=== PATIENT | male | born 1955 | race African-American/Black ===

== ENCOUNTER 2019-08-18 12:07 | Inpatient (IN) | payer OTHER ==
[2019-08-18 12:47] VITALS: BMI 30.4
--- NOTE | 2019-08-18 18:08 | HP ---
CIWA Score - Admission Criteria OASAS Guidelines: Admission for Medically Managed Detox: Requires at least one of the followin. CIWA greater than 12 2. Seizures within the past 24 hours 3. Delirium tremens within the past 24 hours 4. Hallucinations within the past 24 hours 5. Acute intervention needed for co occurring medical disorder 6. Acute intervention needed for co occurring psychiatric disorder 7. Severe withdrawal that cannot be handled at a lower level of care (continued vomiting, continued diarrhea, abnormal vital signs) requiring intravenous medication and/or fluids 8. Admitting History and Physical - Admission History Source: Patient Limitations to Obtaining History: Physical Impairment (Uses cane ambulate.) - Past Surgical History Past Surgical History: Yes: Appendectomy - Smoking History Smoking history: Former smoker Have you smoked in the past 12 months: No - Alcohol/Substance Use Hx Alcohol Use: Yes Number of Drinks Daily: 6 History of Substance Use: reports: Cocaine Date of Last Use: 08/10/19 - Social History Usual Living Arrangement: Yes: Other (With sister and friends) Admission [facility] Chief Complaint: Seeking rehab services. Allergies/Adverse Reactions: Allergies Allergy/AdvReac Type Severity Reaction Status Date / Time No Known Allergies Allergy Verified 08/18/19 12:25 History of Present Illness: 63 y.o. man with an extensive history of alcohol and crack-cocaine dependence is here seeking rehab services. He reports completed detox at [facility] today (08/18/19). He reports his longest period of sobriety has been 5 years while incarcerated. Exam Limitations: Physical Impairment (Uses a cane when ambulating.) - Ebola screening Have you traveled outside of the country in the last 21 days: No Have you had contact with anyone from an Ebola affected area: No Do you have a fever: No - Review of Systems Constitutional: Unexplained wgt Loss EENT: reports: Nose Congestion Respiratory: reports: Cough Cardiac: reports: No Symptoms Reported GI: reports: No Symptoms Reported : reports: No Symptoms Reported Musculoskeletal: reports: Gout, Joint Pain, Muscle Pain Integumentary: reports: No Symptoms Reported Neuro: reports: Seizure ("A few years ago"; ETOH induced.) Endocrine: reports: No Symptoms Reported Hematology: reports: No Symptoms Reported Psychiatric: reports: Orientated x3, Depressed Other Systems: Reviewed and Negative Patient History - Patient Medical History Hx Anemia: Yes (JEFRY ) Hx Asthma: No Hx Chronic Obstructive Pulmonary Disease (COPD): No Hx Cancer: No Hx Cardiac Disorders: Yes Hx Congestive Heart Failure: No Hx Hypertension: Yes Hx Hypercholesterolemia: No Hx Pacemaker: No HX Cerebrovascular Accident: No Hx Seizures: Yes (ETOH induced in 2017) Hx Dementia: No Hx Diabetes: No Hx Gastrointestinal Disorders: No Hx Liver Disease: No Hx Genitourinary Disorders: No Hx Sexually Transmitted Disorders: No Hx Renal Disease (ESRD): No Hx Thyroid Disease: No Hx Human Immunodeficiency Virus (HIV): No Hx Hepatitis C: No Hx Depression: Yes Hx Suicide Attempt: No Hx Bipolar Disorder: No Hx Schizophrenia: No - Patient Surgical History Hx Appendectomy: Yes Other Surgical History: Right ring finger amputation - PPD History Previous Implant?: Yes Documented Results: Negative w/o proof - Reproductive History Patient is a Female of Child Bearing Age (11 -55 yrs old): No - Smoking Cessation Smoking history: Former smoker Have you smoked in the past 12 months: No Initiated information on smoking cessation: No - Substance & Tx. History Hx Alcohol Use: Yes Hx Substance Use: Yes Substance Use Type: Alcohol, Cocaine Hx Substance Use Treatment: Yes (Completed detox today at [facility] ) - Substances abused Alcohol Substance route: Oral Frequency: Daily Amount used: 6 CANS OF 160Z BEERS Age of first use: 17 Date of last use: 08/13/19 Crack Substance route: Inhalation Frequency: 1-3 times last 30 days Amount used: $20 Date of last use: 07/19/19 Admission Physical Exam BHS - Vital Signs Vital Signs: Vital Signs - 24 hr 08/18/19 08/18/19 12:22 17:41 Temperature 97.8 F 97.8 F Pulse Rate 90 90 Respiratory 18 18 Rate Blood Pressure 120/85 120/85 - Physical General Appearance: Yes: No Apparent Distress, Nourished, Appropriately Dressed HEENTM: Yes: Hearing grossly Normal, Normocephalic, Normal Voice Respiratory: Yes: Chest Non-Tender, Lungs Clear, Normal Breath Sounds, No Respiratory Distress, No Accessory Muscle Use Neck: Yes: Within Normal Limits Breast: Yes: Breast Exam Deferred Cardiology: Yes: Regular Rhythm, Regular Rate Abdominal: Yes: Normal Bowel Sounds, Non Tender Genitourinary: Yes: Within Normal Limits Back: Yes: Normal Inspection Musculoskeletal: Yes: Back pain, Joint Stiffness, Muscle Pain, Muscle weakness Extremities: Yes: Normal Inspection, Other (Right ring finger amputation) Neurological: Yes: Alert, Normal Mood/Affect, Normal Response Integumentary: Yes: Normal Color, Warm Lymphatic: Yes: Within Normal Limits - Diagnostic (1) Alcohol dependence with intoxication, uncomplicated Current Visit: Yes Status: Chronic (2) Gout Current Visit: Yes Status: Chronic (3) Hypertension Current Visit: Yes Status: Chronic (4) History of seizure Current Visit: Yes Status: Chronic (5) Osteoarthritis Current Visit: Yes Status: Chronic (6) Use of cane as ambulatory aid Current Visit: Yes Status: Chronic (7) Cocaine dependence, uncomplicated Current Visit: Yes Status: Chronic (8) Chronic pain Current Visit: Yes Status: Chronic Cleared for Admission [facility] - Detox or Rehab [facility] Level of Care: Observation Bed Detox Regimen/Protocol: Not Applicable Claeared for Rehab Admission: Yes Breathalyzer - Breathalyzer Breathalyzer: 0 Urine Drug Screen - Test Device Lot number: [id number] Expiration date: 03/25/21 - Control Is test valid?: Yes - Results Drug screen NEGATIVE: No Urine drug screen results: BZO-Benzodiazepines Inpatient Rehab Admission - Rehab Decision to Admit Inpatient rehab admission?: Yes - Initial Determination Are CD services needed?: Yes Free of communicable disease: Yes Not in need of hospitalization: Yes - Rehab Admission Criteria Previous failed treatment: Yes Poor recovery environment: Yes Comorbidities: Yes Lacks judgement: Yes Patient is meeting Inpatient Rehab admission criteria:: Yes
[2019-08-18] MEDS ORDERED: MAG HYDROX/AL HYDROX/SIMETH 30 ML UNIT-DOSE CUP PO PRN (18:16)
[2019-08-18] MEDS ORDERED: MAGNESIUM HYDROX 2400MG/30ML ORAL SUSPENSION 30 ML CUP PO PRN (18:16)
[2019-08-18] MEDS ORDERED: MAGNESIUM CITRATE 300 ML BOTTLE PO PRN (18:16)
[2019-08-18] MEDS ORDERED: hydrOXYzine PAMOATE 50 MG CAPSULE (FP) PO PRN (18:16)
[2019-08-18] MEDS ORDERED: MENTHOL/PHENOL 1 EACH UD MM PRN (18:16)
[2019-08-18] MEDS ORDERED: P-EPHED 60MG/TRIPROLIDI 2.5MG TABLET PO PRN (18:16)
[2019-08-18] MEDS ORDERED: LOPERAMIDE HCL 2 MG CAPSULE PO PRN (18:16)
[2019-08-18] MEDS: THIAMINE HCL 100 MG TABLET (FP) PO SCH (21:06)
[2019-08-18] MEDS: GABAPENTIN 100 MG CAPSULE (FP) PO SCH (21:06)
[2019-08-19] MEDS: GABAPENTIN 100 MG CAPSULE (FP) PO SCH ×3 (06:34→21:01)
[2019-08-19] MEDS: PRENATAL VITAMINS W/ FOLIC ACID TABLET (FP) PO SCH (09:18)
[2019-08-19] MEDS: ASPIRIN COATED 81 MG TABLET.EC PO SCH (09:18)
[2019-08-19] MEDS: COLCHICINE 0.6 MG CAP PO SCH (09:18)
[2019-08-19] MEDS: LISINOPRIL 20 MG TABLET (FP) PO SCH (09:19)
--- NOTE | 2019-08-19 10:01 | PN ---
S Progress Note Note: Vital Signs Period Temp Pulse Resp BP Sys/Scruggs Pulse Ox Last 24 Hr 97.2 F-97.8 F 68-95 18-18 120-160/74-99 First admission to [facility] for this patient; admitted to [address] [place] [address]. problem list reviewed, home medications reviewed, orders reviewed. Continue rehabilitation and maintain safety.
[2019-08-19 10:43] LABS: HEMATOCRIT 43.9 % (35.4-49); HEMOGLOBIN 14.5 GM/dL (11.7-16.9); MCH 32.6 pg (25.7-33.7); MCHC 33.1 g/dl (32.0-35.9); MEAN CELL VOLUME 98.6 fl (80-96); MEAN PLT VOLUME 9.9 fl (7.5-11.1); PLATELET COUNT 184 K/MM3 (134-434); RBC 4.45 M/mm3 (4.00-5.60); RDW 13.1 % (11.9-15.9)
[2019-08-19 10:53] LABS: ALBUMIN 4.2 g/dl (3.4-5.0); BILIRUBIN,TOTAL 0.5 mg/dL (0.2-1); BLOOD UREA NITROGEN 18.5 mg/dL (7-18); CALCIUM 9.2 mg/dL (8.5-10.1); POTASSIUM 3.9 mmol/L (3.5-5.1); TOT PROT 7.7 g/dl (6.4-8.2)
[2019-08-19] MEDS: THIAMINE HCL 100 MG TABLET (FP) PO SCH (21:01)
[2019-08-19] MEDS: IBUPROFEN 400 MG TABLET (FP) PO PRN (21:02)
--- NOTE | 2019-08-20 05:13 | EKG ---
Test Reason : Blood Pressure : / mmHG Vent. Rate : 099 BPM Atrial Rate : 099 BPM P-R Int : 184 ms QRS Dur : 088 ms QT Int : 354 ms P-R-T Axes : 046 022 030 degrees QTc Int : 454 ms NORMAL SINUS RHYTHM NONSPECIFIC T WAVE ABNORMALITY ABNORMAL ECG NO PREVIOUS ECGS AVAILABLE Confirmed by BROOKE DUMONT, JOSE ([id number]) on 08/20/2019 5:13:02 AM Referred By: TC Confirmed By:JOSE COX MD
[2019-08-20] MEDS: GABAPENTIN 100 MG CAPSULE (FP) PO SCH ×3 (07:07→21:00)
[2019-08-20] MEDS: COLCHICINE 0.6 MG CAP PO SCH (09:59)
[2019-08-20] MEDS: ASPIRIN COATED 81 MG TABLET.EC PO SCH (10:00)
[2019-08-20] MEDS: PRENATAL VITAMINS W/ FOLIC ACID TABLET (FP) PO SCH (10:00)
[2019-08-20] MEDS: LISINOPRIL 20 MG TABLET (FP) PO SCH (10:00)
[2019-08-20] MEDS: IBUPROFEN 400 MG TABLET (FP) PO PRN (10:02)
[2019-08-20 16:02] LABS: URINE APPEARANCE CLEAR; URINE BILIRUBIN NEGATIVE (NEGATIVE); URINE COLOR YELLOW; URINE GLUCOSE (UA) NEGATIVE (NEGATIVE); URINE KETONE NEGATIVE (NEGATIVE); URINE LEUK ESTERASE NEGATIVE (NEGATIVE); URINE NITRITE NEGATIVE (NEGATIVE); URINE PROTEIN NEGATIVE (NEGATIVE); URINE UROBILINOGEN 0.2 mg/dL (0.2-1.0)
[2019-08-20] MEDS: THIAMINE HCL 100 MG TABLET (FP) PO SCH (21:01)
[2019-08-21] MEDS: GABAPENTIN 100 MG CAPSULE (FP) PO SCH ×3 (06:33→21:07)
[2019-08-21] MEDS: PRENATAL VITAMINS W/ FOLIC ACID TABLET (FP) PO SCH (10:00)
[2019-08-21] MEDS: ASPIRIN COATED 81 MG TABLET.EC PO SCH (10:00)
[2019-08-21] MEDS: COLCHICINE 0.6 MG CAP PO SCH (10:01)
[2019-08-21] MEDS: LISINOPRIL 20 MG TABLET (FP) PO SCH (10:01)
[2019-08-21] MEDS: IBUPROFEN 400 MG TABLET (FP) PO PRN ×2 (10:03→21:07)
[2019-08-21] MEDS: ACETAMINOPHEN 325 MG TABLET (FP) PO PRN (14:58)
[2019-08-21] MEDS: THIAMINE HCL 100 MG TABLET (FP) PO SCH (21:07)
[2019-08-21] MEDS: guaiFENesin 200 MG/10 ML 10 ML UNIT-DOSE CUPS PO PRN (23:45)
[2019-08-22] MEDS: GABAPENTIN 100 MG CAPSULE (FP) PO SCH ×3 (06:32→21:02)
[2019-08-22] MEDS: LISINOPRIL 20 MG TABLET (FP) PO SCH ×2 (07:30→09:56)
[2019-08-22] MEDS: COLCHICINE 0.6 MG CAP PO SCH (09:54)
[2019-08-22] MEDS: PRENATAL VITAMINS W/ FOLIC ACID TABLET (FP) PO SCH (09:54)
[2019-08-22] MEDS: ASPIRIN COATED 81 MG TABLET.EC PO SCH (09:54)
[2019-08-22] MEDS: IBUPROFEN 400 MG TABLET (FP) PO PRN (14:34)
[2019-08-22] MEDS: THIAMINE HCL 100 MG TABLET (FP) PO SCH (21:02)
[2019-08-22] MEDS: MELATONIN 5 MG TABLETS PO PRN (21:02)
[2019-08-22] MEDS: NAPROXEN 375 MG TABLET (FP) PO SCH (23:10)
[2019-08-23] MEDS: GABAPENTIN 100 MG CAPSULE (FP) PO SCH ×3 (06:52→21:04)
[2019-08-23] MEDS: LISINOPRIL 20 MG TABLET (FP) PO SCH (09:38)
[2019-08-23] MEDS: ASPIRIN COATED 81 MG TABLET.EC PO SCH (09:38)
[2019-08-23] MEDS: COLCHICINE 0.6 MG CAP PO SCH (09:38)
[2019-08-23] MEDS: PRENATAL VITAMINS W/ FOLIC ACID TABLET (FP) PO SCH (09:38)
[2019-08-23] MEDS: NAPROXEN 375 MG TABLET (FP) PO SCH ×2 (09:38→21:04)
[2019-08-23] MEDS: THIAMINE HCL 100 MG TABLET (FP) PO SCH (21:04)
[2019-08-24] MEDS: GABAPENTIN 100 MG CAPSULE (FP) PO SCH ×3 (06:38→21:02)
[2019-08-24] MEDS: NAPROXEN 375 MG TABLET (FP) PO SCH ×2 (09:56→21:01)
[2019-08-24] MEDS: PRENATAL VITAMINS W/ FOLIC ACID TABLET (FP) PO SCH (09:56)
[2019-08-24] MEDS: COLCHICINE 0.6 MG CAP PO SCH (09:57)
[2019-08-24] MEDS: ASPIRIN COATED 81 MG TABLET.EC PO SCH (09:57)
[2019-08-24] MEDS: LISINOPRIL 20 MG TABLET (FP) PO SCH (09:57)
[2019-08-24] MEDS: guaiFENesin 200 MG/10 ML 10 ML UNIT-DOSE CUPS PO PRN (09:58)
[2019-08-24] MEDS: THIAMINE HCL 100 MG TABLET (FP) PO SCH (21:02)
[2019-08-24] MEDS: MELATONIN 5 MG TABLETS PO PRN (21:02)
[2019-08-25] MEDS: GABAPENTIN 100 MG CAPSULE (FP) PO SCH ×3 (06:20→21:03)
[2019-08-25] MEDS: guaiFENesin 200 MG/10 ML 10 ML UNIT-DOSE CUPS PO PRN (06:21)
[2019-08-25] MEDS: NAPROXEN 375 MG TABLET (FP) PO SCH ×2 (10:05→21:03)
[2019-08-25] MEDS: ASPIRIN COATED 81 MG TABLET.EC PO SCH (10:06)
[2019-08-25] MEDS: COLCHICINE 0.6 MG CAP PO SCH (10:07)
[2019-08-25] MEDS: PRENATAL VITAMINS W/ FOLIC ACID TABLET (FP) PO SCH (10:07)
[2019-08-25] MEDS: LISINOPRIL 20 MG TABLET (FP) PO SCH (10:07)
[2019-08-25] MEDS: THIAMINE HCL 100 MG TABLET (FP) PO SCH (21:03)
[2019-08-26] MEDS: GABAPENTIN 100 MG CAPSULE (FP) PO SCH ×3 (06:37→21:03)
[2019-08-26] MEDS: NAPROXEN 375 MG TABLET (FP) PO SCH ×2 (09:42→21:02)
[2019-08-26] MEDS: LISINOPRIL 20 MG TABLET (FP) PO SCH (09:42)
[2019-08-26] MEDS: PRENATAL VITAMINS W/ FOLIC ACID TABLET (FP) PO SCH (09:42)
[2019-08-26] MEDS: COLCHICINE 0.6 MG CAP PO SCH (09:42)
[2019-08-26] MEDS: ASPIRIN COATED 81 MG TABLET.EC PO SCH (09:42)
--- NOTE | 2019-08-26 09:57 | PN ---
[facility] Progress Note Note: Pt c/o chronic left hip pain and reports he was told "it's bone to bone". Pt reports Hx of right hip surgery. Vital Signs - 24 hr 08/26/19 08/26/19 08/26/19 00:59 03:30 06:54 Temperature 97.0 F L Pulse Rate 84 Respiratory 16 18 18 Rate Blood Pressure 156/102 H 08/26/19 08/26/19 07:47 09:08 Temperature Pulse Rate 92 H Respiratory Rate Blood Pressure 133/71 139/89 Laboratory Tests 08/19/19 08/19/19 08/19/19 09:20 09:20 09:20 WBC 8.0 RBC 4.45 Hgb 14.5 Hct 43.9 MCV 98.6 H MCH 32.6 MCHC 33.1 RDW 13.1 Plt Count 184 MPV 9.9 Sodium 142 Potassium 3.9 Chloride 108 H Carbon Dioxide 27 Anion Gap 7 L BUN 18.5 H Creatinine 1.0 Est GFR (CKD-EPI)AfAm 93.08 Est GFR (CKD-EPI)NonAf 80.31 Random Glucose 101 Calcium 9.2 Total Bilirubin 0.5 AST 30 ALT 42 Alkaline Phosphatase 94 Total Protein 7.7 Albumin 4.2 Urine Color Urine Appearance Urine pH Ur Specific [place] Urine Protein Urine Glucose (UA) Urine Ketones Urine Blood Urine Nitrite Urine Bilirubin Urine Urobilinogen Ur Leukocyte Esterase RPR Titer Nonreactive 08/20/19 13:40 WBC RBC Hgb Hct MCV MCH MCHC RDW Plt Count MPV Sodium Potassium Chloride Carbon Dioxide Anion Gap BUN Creatinine Est GFR (CKD-EPI)AfAm Est GFR (CKD-EPI)NonAf Random Glucose Calcium Total Bilirubin AST ALT Alkaline Phosphatase Total Protein Albumin Urine Color Yellow Urine Appearance Clear Urine pH 7.0 Ur Specific [place] 1.019 Urine Protein Negative Urine Glucose (UA) Negative Urine Ketones Negative Urine Blood Negative Urine Nitrite Negative Urine Bilirubin Negative Urine Urobilinogen 0.2 Ur Leukocyte Esterase Negative RPR Titer Alert o x 3 nad oob ambulating with cane A/P chronic Hip pain Hx Gout Add Lidocaine patch 5% daily as directed. Maintain safety
[2019-08-26] MEDS: LIDOCAINE 5% TOPICAL PATCH TP SCH (10:37)
[2019-08-26] MEDS: guaiFENesin 200 MG/10 ML 10 ML UNIT-DOSE CUPS PO PRN ×2 (14:14→21:04)
[2019-08-26] MEDS: LIDOCAINE PATCH REMOVAL MC SCH (21:02)
[2019-08-26] MEDS: THIAMINE HCL 100 MG TABLET (FP) PO SCH (21:03)
[2019-08-26] MEDS: MELATONIN 5 MG TABLETS PO PRN (21:03)
[2019-08-27] MEDS: GABAPENTIN 100 MG CAPSULE (FP) PO SCH ×3 (05:55→21:04)
[2019-08-27] MEDS: NAPROXEN 375 MG TABLET (FP) PO SCH ×2 (10:19→21:04)
[2019-08-27] MEDS: COLCHICINE 0.6 MG CAP PO SCH (10:20)
[2019-08-27] MEDS: ASPIRIN COATED 81 MG TABLET.EC PO SCH (10:20)
[2019-08-27] MEDS: PRENATAL VITAMINS W/ FOLIC ACID TABLET (FP) PO SCH (10:20)
[2019-08-27] MEDS: LIDOCAINE 5% TOPICAL PATCH TP SCH (10:21)
[2019-08-27] MEDS: LISINOPRIL 20 MG TABLET (FP) PO SCH (10:23)
[2019-08-27] MEDS: THIAMINE HCL 100 MG TABLET (FP) PO SCH (21:04)
[2019-08-27] MEDS: LIDOCAINE PATCH REMOVAL MC SCH (21:05)
[2019-08-28] MEDS: GABAPENTIN 100 MG CAPSULE (FP) PO SCH ×3 (06:16→21:03)
[2019-08-28] MEDS: NAPROXEN 375 MG TABLET (FP) PO SCH ×2 (09:32→21:03)
[2019-08-28] MEDS: ASPIRIN COATED 81 MG TABLET.EC PO SCH (09:32)
[2019-08-28] MEDS: PRENATAL VITAMINS W/ FOLIC ACID TABLET (FP) PO SCH (09:33)
[2019-08-28] MEDS: LISINOPRIL 20 MG TABLET (FP) PO SCH (09:33)
[2019-08-28] MEDS: COLCHICINE 0.6 MG CAP PO SCH (09:33)
[2019-08-28] MEDS: LIDOCAINE 5% TOPICAL PATCH TP SCH (09:33)
[2019-08-28] MEDS: THIAMINE HCL 100 MG TABLET (FP) PO SCH (21:03)
[2019-08-28] MEDS: LIDOCAINE PATCH REMOVAL MC SCH (21:05)
[2019-08-29] MEDS: GABAPENTIN 100 MG CAPSULE (FP) PO SCH ×3 (06:06→21:45)
[2019-08-29] MEDS: PRENATAL VITAMINS W/ FOLIC ACID TABLET (FP) PO SCH (10:53)
[2019-08-29] MEDS: ASPIRIN COATED 81 MG TABLET.EC PO SCH (10:53)
[2019-08-29] MEDS: LIDOCAINE 5% TOPICAL PATCH TP SCH (10:54)
[2019-08-29] MEDS: COLCHICINE 0.6 MG CAP PO SCH (10:55)
[2019-08-29] MEDS: NAPROXEN 375 MG TABLET (FP) PO SCH ×2 (10:55→21:44)
[2019-08-29] MEDS: LISINOPRIL 20 MG TABLET (FP) PO SCH (11:22)
[2019-08-29] MEDS: LIDOCAINE PATCH REMOVAL MC SCH (21:44)
[2019-08-29] MEDS: THIAMINE HCL 100 MG TABLET (FP) PO SCH (21:45)
[2019-08-29] MEDS: guaiFENesin 200 MG/10 ML 10 ML UNIT-DOSE CUPS PO PRN (21:46)
[2019-08-30] MEDS: GABAPENTIN 100 MG CAPSULE (FP) PO SCH ×3 (06:41→21:37)
[2019-08-30] MEDS: COLCHICINE 0.6 MG CAP PO SCH (10:28)
[2019-08-30] MEDS: NAPROXEN 375 MG TABLET (FP) PO SCH ×2 (10:28→22:40)
[2019-08-30] MEDS: PRENATAL VITAMINS W/ FOLIC ACID TABLET (FP) PO SCH (10:29)
[2019-08-30] MEDS: LISINOPRIL 20 MG TABLET (FP) PO SCH (10:29)
[2019-08-30] MEDS: LIDOCAINE 5% TOPICAL PATCH TP SCH (10:29)
[2019-08-30] MEDS: ASPIRIN COATED 81 MG TABLET.EC PO SCH (10:29)
[2019-08-30] MEDS: guaiFENesin 200 MG/10 ML 10 ML UNIT-DOSE CUPS PO PRN (10:31)
[2019-08-30] MEDS: THIAMINE HCL 100 MG TABLET (FP) PO SCH (21:37)
[2019-08-30] MEDS: MELATONIN 5 MG TABLETS PO PRN (21:37)
[2019-08-30] MEDS: LIDOCAINE PATCH REMOVAL MC SCH (21:38)
[2019-08-31] MEDS: GABAPENTIN 100 MG CAPSULE (FP) PO SCH ×3 (06:13→22:11)
[2019-08-31] MEDS: PRENATAL VITAMINS W/ FOLIC ACID TABLET (FP) PO SCH (09:31)
[2019-08-31] MEDS: LIDOCAINE 5% TOPICAL PATCH TP SCH (09:31)
[2019-08-31] MEDS: ASPIRIN COATED 81 MG TABLET.EC PO SCH (09:31)
[2019-08-31] MEDS: LISINOPRIL 20 MG TABLET (FP) PO SCH (09:31)
[2019-08-31] MEDS: NAPROXEN 375 MG TABLET (FP) PO SCH ×2 (09:32→22:11)
[2019-08-31] MEDS: COLCHICINE 0.6 MG CAP PO SCH (09:32)
[2019-08-31] MEDS: THIAMINE HCL 100 MG TABLET (FP) PO SCH (22:11)
[2019-08-31] MEDS: LIDOCAINE PATCH REMOVAL MC SCH (22:12)
[2019-09-01] MEDS: GABAPENTIN 100 MG CAPSULE (FP) PO SCH ×3 (06:12→21:59)
[2019-09-01] MEDS: NAPROXEN 375 MG TABLET (FP) PO SCH ×2 (10:31→21:59)
[2019-09-01] MEDS: LISINOPRIL 20 MG TABLET (FP) PO SCH (10:31)
[2019-09-01] MEDS: COLCHICINE 0.6 MG CAP PO SCH (10:31)
[2019-09-01] MEDS: PRENATAL VITAMINS W/ FOLIC ACID TABLET (FP) PO SCH (10:31)
[2019-09-01] MEDS: ASPIRIN COATED 81 MG TABLET.EC PO SCH (10:31)
[2019-09-01] MEDS: LIDOCAINE 5% TOPICAL PATCH TP SCH (10:32)
[2019-09-01] MEDS: THIAMINE HCL 100 MG TABLET (FP) PO SCH (21:59)
[2019-09-01] MEDS: LIDOCAINE PATCH REMOVAL MC SCH (22:00)
[2019-09-02] MEDS: GABAPENTIN 100 MG CAPSULE (FP) PO SCH ×3 (06:03→22:08)
[2019-09-02] MEDS: PRENATAL VITAMINS W/ FOLIC ACID TABLET (FP) PO SCH (10:59)
[2019-09-02] MEDS: LISINOPRIL 20 MG TABLET (FP) PO SCH (10:59)
[2019-09-02] MEDS: NAPROXEN 375 MG TABLET (FP) PO SCH ×2 (10:59→22:08)
[2019-09-02] MEDS: LIDOCAINE 5% TOPICAL PATCH TP SCH (11:00)
[2019-09-02] MEDS: ASPIRIN COATED 81 MG TABLET.EC PO SCH (11:00)
[2019-09-02] MEDS: COLCHICINE 0.6 MG CAP PO SCH (11:00)
[2019-09-02] MEDS: THIAMINE HCL 100 MG TABLET (FP) PO SCH (22:08)
[2019-09-02] MEDS: LIDOCAINE PATCH REMOVAL MC SCH (22:09)
[2019-09-03] MEDS: GABAPENTIN 100 MG CAPSULE (FP) PO SCH ×3 (06:02→21:57)
[2019-09-03] MEDS: NAPROXEN 375 MG TABLET (FP) PO SCH ×2 (10:55→21:56)
[2019-09-03] MEDS: PRENATAL VITAMINS W/ FOLIC ACID TABLET (FP) PO SCH (10:55)
[2019-09-03] MEDS: LISINOPRIL 20 MG TABLET (FP) PO SCH (10:55)
[2019-09-03] MEDS: ASPIRIN COATED 81 MG TABLET.EC PO SCH (10:56)
[2019-09-03] MEDS: LIDOCAINE 5% TOPICAL PATCH TP SCH (10:56)
[2019-09-03] MEDS: COLCHICINE 0.6 MG CAP PO SCH (10:56)
--- NOTE | 2019-09-03 11:11 | PN ---
S Progress Note Note: Pt c/o pain and skin breaks to both toes due to ill-fitting shoes. Reports slight pain to the areas 3/10 on left and 1-2/10 on right. Vital Signs - 24 hr 09/03/19 09/03/19 09/03/19 00:30 03:30 07:07 Temperature 97.3 F L Pulse Rate 78 Respiratory 18 18 18 Rate Blood Pressure 144/90 LE Exam:bunion on great toes, breanna. right great toe with old darkened abrasion, dry. left great toe with old ulcer wound, slightly moist,no pus or drainage. toe joints deformity. slight non-pitting edema to both lower extremities. A/P hx Gout hx Bunions ulcer/abrasion relate to ill-fitting shoes Clean ulcer with saline solution Bacitracin ointment apply as directed LEYDI stockings as directed elevate both legs while in bed d/w pt to use well fitted shoes
[2019-09-03] MEDS: BACITRACIN 15 GM TUBE TOPICAL OINTMENT TP SCH ×2 (12:00→21:57)
[2019-09-03] MEDS: LIDOCAINE PATCH REMOVAL MC SCH (21:57)
[2019-09-03] MEDS: THIAMINE HCL 100 MG TABLET (FP) PO SCH (21:57)
[2019-09-04] MEDS: GABAPENTIN 100 MG CAPSULE (FP) PO SCH ×3 (06:09→22:00)
[2019-09-04] MEDS: LISINOPRIL 20 MG TABLET (FP) PO SCH (10:49)
[2019-09-04] MEDS: ASPIRIN COATED 81 MG TABLET.EC PO SCH (10:49)
[2019-09-04] MEDS: LIDOCAINE 5% TOPICAL PATCH TP SCH (10:50)
[2019-09-04] MEDS: NAPROXEN 375 MG TABLET (FP) PO SCH ×2 (10:50→22:00)
[2019-09-04] MEDS: COLCHICINE 0.6 MG CAP PO SCH (10:50)
[2019-09-04] MEDS: PRENATAL VITAMINS W/ FOLIC ACID TABLET (FP) PO SCH (10:50)
[2019-09-04] MEDS: BACITRACIN 15 GM TUBE TOPICAL OINTMENT TP SCH ×2 (10:51→21:59)
[2019-09-04] MEDS ORDERED: valACYclovir HCL 500 MG TABLET (FP) PO ONE (11:05)
--- NOTE | 2019-09-04 11:05 | PN ---
[facility] Progress Note Note: Pt reports today he has an "outbreak" and has a hx of genital herpes of which he takes Valtrex. reports last treated 8 months ago. Reports he has bumps on penis which is uncomfortable when it rubs against his underwear. Requesting treatment for outbreak of genital Herpes. Vital Signs - 24 hr 09/04/19 09/04/19 09/04/19 00:30 03:30 07:02 Temperature 97.5 F L Pulse Rate 79 Respiratory 18 18 18 Rate Blood Pressure 149/77 Laboratory Tests 08/19/19 08/19/19 08/19/19 09:20 09:20 09:20 WBC 8.0 RBC 4.45 Hgb 14.5 Hct 43.9 MCV 98.6 H MCH 32.6 MCHC 33.1 RDW 13.1 Plt Count 184 MPV 9.9 Sodium 142 Potassium 3.9 Chloride 108 H Carbon Dioxide 27 Anion Gap 7 L BUN 18.5 H Creatinine 1.0 Est GFR (CKD-EPI)AfAm 93.08 Est GFR (CKD-EPI)NonAf 80.31 Random Glucose 101 Calcium 9.2 Total Bilirubin 0.5 AST 30 ALT 42 Alkaline Phosphatase 94 Total Protein 7.7 Albumin 4.2 Urine Color Urine Appearance Urine pH Ur Specific [place] Urine Protein Urine Glucose (UA) Urine Ketones Urine Blood Urine Nitrite Urine Bilirubin Urine Urobilinogen Ur Leukocyte Esterase RPR Titer Nonreactive 08/20/19 13:40 WBC RBC Hgb Hct MCV MCH MCHC RDW Plt Count MPV Sodium Potassium Chloride Carbon Dioxide Anion Gap BUN Creatinine Est GFR (CKD-EPI)AfAm Est GFR (CKD-EPI)NonAf Random Glucose Calcium Total Bilirubin AST ALT Alkaline Phosphatase Total Protein Albumin Urine Color Yellow Urine Appearance Clear Urine pH 7.0 Ur Specific [place] 1.019 Urine Protein Negative Urine Glucose (UA) Negative Urine Ketones Negative Urine Blood Negative Urine Nitrite Negative Urine Bilirubin Negative Urine Urobilinogen 0.2 Ur Leukocyte Esterase Negative RPR Titer A/P Hx of Genital herpes Acute flare up-Recurrent genital herpes outbreak. Valtrex 500 mg po bid x 3 days.
[2019-09-04] MEDS: LIDOCAINE PATCH REMOVAL MC SCH (21:59)
[2019-09-04] MEDS: THIAMINE HCL 100 MG TABLET (FP) PO SCH (22:00)
[2019-09-04] MEDS: valACYclovir HCL 500 MG TABLET (FP) PO SCH (22:00)
[2019-09-05] MEDS: GABAPENTIN 100 MG CAPSULE (FP) PO SCH ×3 (06:47→22:14)
[2019-09-05] MEDS: PRENATAL VITAMINS W/ FOLIC ACID TABLET (FP) PO SCH (10:48)
[2019-09-05] MEDS: LIDOCAINE 5% TOPICAL PATCH TP SCH (10:48)
[2019-09-05] MEDS: ASPIRIN COATED 81 MG TABLET.EC PO SCH (10:48)
[2019-09-05] MEDS: LISINOPRIL 20 MG TABLET (FP) PO SCH (10:48)
[2019-09-05] MEDS: BACITRACIN 15 GM TUBE TOPICAL OINTMENT TP SCH ×2 (10:48→22:14)
[2019-09-05] MEDS: valACYclovir HCL 500 MG TABLET (FP) PO SCH ×2 (10:48→22:14)
[2019-09-05] MEDS: COLCHICINE 0.6 MG CAP PO SCH (10:49)
[2019-09-05] MEDS: NAPROXEN 375 MG TABLET (FP) PO SCH ×2 (10:49→22:14)
[2019-09-05] MEDS: LIDOCAINE PATCH REMOVAL MC SCH (22:14)
[2019-09-05] MEDS: THIAMINE HCL 100 MG TABLET (FP) PO SCH (22:14)
[2019-09-06] MEDS: GABAPENTIN 100 MG CAPSULE (FP) PO SCH ×3 (06:15→22:07)
[2019-09-06] MEDS: NAPROXEN 375 MG TABLET (FP) PO SCH ×2 (10:41→22:04)
[2019-09-06] MEDS: LISINOPRIL 20 MG TABLET (FP) PO SCH (10:41)
[2019-09-06] MEDS: PRENATAL VITAMINS W/ FOLIC ACID TABLET (FP) PO SCH (10:41)
[2019-09-06] MEDS: ASPIRIN COATED 81 MG TABLET.EC PO SCH (10:41)
[2019-09-06] MEDS: valACYclovir HCL 500 MG TABLET (FP) PO SCH ×2 (10:41→22:04)
[2019-09-06] MEDS: BACITRACIN 15 GM TUBE TOPICAL OINTMENT TP SCH ×2 (10:41→22:05)
[2019-09-06] MEDS: COLCHICINE 0.6 MG CAP PO SCH (10:42)
[2019-09-06] MEDS: LIDOCAINE 5% TOPICAL PATCH TP SCH (10:42)
[2019-09-06] MEDS: THIAMINE HCL 100 MG TABLET (FP) PO SCH (22:04)
[2019-09-06] MEDS: LIDOCAINE PATCH REMOVAL MC SCH (22:05)
[2019-09-07] MEDS: GABAPENTIN 100 MG CAPSULE (FP) PO SCH ×3 (05:59→21:58)
[2019-09-07] MEDS: ACETAMINOPHEN 325 MG TABLET (FP) PO PRN (05:59)
[2019-09-07] MEDS: PRENATAL VITAMINS W/ FOLIC ACID TABLET (FP) PO SCH (11:48)
[2019-09-07] MEDS: LISINOPRIL 20 MG TABLET (FP) PO SCH (11:48)
[2019-09-07] MEDS: ASPIRIN COATED 81 MG TABLET.EC PO SCH (11:48)
[2019-09-07] MEDS: BACITRACIN 15 GM TUBE TOPICAL OINTMENT TP SCH ×2 (11:48→21:59)
[2019-09-07] MEDS: valACYclovir HCL 500 MG TABLET (FP) PO SCH (11:49)
[2019-09-07] MEDS: COLCHICINE 0.6 MG CAP PO SCH (11:53)
[2019-09-07] MEDS: NAPROXEN 375 MG TABLET (FP) PO SCH ×2 (11:53→21:58)
[2019-09-07] MEDS: LIDOCAINE 5% TOPICAL PATCH TP SCH (12:53)
[2019-09-07] MEDS: THIAMINE HCL 100 MG TABLET (FP) PO SCH (21:58)
[2019-09-07] MEDS: LIDOCAINE PATCH REMOVAL MC SCH (21:59)
[2019-09-08] MEDS: GABAPENTIN 100 MG CAPSULE (FP) PO SCH (06:45)
[2019-09-08 07:06] VITALS: BP 149/88; PULSE 94; TEMP 97.7
[2019-09-08] MEDS: NAPROXEN 375 MG TABLET (FP) PO SCH (09:10)
[2019-09-08] MEDS: PRENATAL VITAMINS W/ FOLIC ACID TABLET (FP) PO SCH (09:10)
[2019-09-08] MEDS: ASPIRIN COATED 81 MG TABLET.EC PO SCH (09:10)
[2019-09-08] MEDS: LISINOPRIL 20 MG TABLET (FP) PO SCH (09:10)
[2019-09-08] MEDS: LIDOCAINE 5% TOPICAL PATCH TP SCH (09:11)
[2019-09-08] MEDS: COLCHICINE 0.6 MG CAP PO SCH (09:11)
[2019-09-08] MEDS: BACITRACIN 15 GM TUBE TOPICAL OINTMENT TP SCH (09:12)
--- NOTE | 2019-09-08 10:16 | DS ---
[facility] Rehab Discharge Summary - [facility] Rehab Discharge Summary Admission Date: 08/18/19 Discharge Date: 09/08/19 - History Present History: Alcohol dependence, Cocaine dependence Additional Comments: Pt is a 63 y/o male with a hx of SANTOS-alcohol,cocaine admitted to rehab and scheduled for discharge today. pt reports he has a PCP Dr. Shah in [place], [place] at [facility] Pertinent Past History: HTN Seizures Gout Osteoarthritis Use of Cane for Ambulation - Discharge Physical Exam Vital Signs: Vital Signs Temperature 97.7 F 09/08/19 07:05 Pulse Rate 94 H 09/08/19 07:05 Respiratory Rate 18 09/08/19 07:05 Blood Pressure 149/88 09/08/19 07:05 O2 Sat by Pulse Oximetry (%) Pertinent Admission Physical Exam Findings: Laboratory Tests 08/19/19 08/19/19 08/19/19 09:20 09:20 09:20 WBC 8.0 RBC 4.45 Hgb 14.5 Hct 43.9 MCV 98.6 H MCH 32.6 MCHC 33.1 RDW 13.1 Plt Count 184 MPV 9.9 Sodium 142 Potassium 3.9 Chloride 108 H Carbon Dioxide 27 Anion Gap 7 L BUN 18.5 H Creatinine 1.0 Est GFR (CKD-EPI)AfAm 93.08 Est GFR (CKD-EPI)NonAf 80.31 Random Glucose 101 Calcium 9.2 Total Bilirubin 0.5 AST 30 ALT 42 Alkaline Phosphatase 94 Total Protein 7.7 Albumin 4.2 Urine Color Urine Appearance Urine pH Ur Specific [place] Urine Protein Urine Glucose (UA) Urine Ketones Urine Blood Urine Nitrite Urine Bilirubin Urine Urobilinogen Ur Leukocyte Esterase RPR Titer Nonreactive 08/20/19 13:40 WBC RBC Hgb Hct MCV MCH MCHC RDW Plt Count MPV Sodium Potassium Chloride Carbon Dioxide Anion Gap BUN Creatinine Est GFR (CKD-EPI)AfAm Est GFR (CKD-EPI)NonAf Random Glucose Calcium Total Bilirubin AST ALT Alkaline Phosphatase Total Protein Albumin Urine Color Yellow Urine Appearance Clear Urine pH 7.0 Ur Specific [place] 1.019 Urine Protein Negative Urine Glucose (UA) Negative Urine Ketones Negative Urine Blood Negative Urine Nitrite Negative Urine Bilirubin Negative Urine Urobilinogen 0.2 Ur Leukocyte Esterase Negative RPR Titer - Treatment Discharge Condition: Discharge condition good Hospital Course: Pt was admitted to [facility] rehab after completing detox in [facility]. Rehabilitated safely and Cd aftercare accepted to [facility]. - Medication Discharge Medications: Ambulatory Orders Aspirin [Aspirin EC] 81 mg PO DAILY 08/18/19 Colchicine 0.6 mg PO DAILY 08/18/19 Gabapentin 100 mg PO TID 08/18/19 Ibuprofen 400 mg PO Q6H PRN 08/18/19 Lisinopril 20 mg PO DAILY 08/18/19 Meloxicam 15 mg PO DAILY 08/18/19 Methocarbamol [Robaxin -] 500 mg PO TID 08/18/19 Naproxen 375 mg PO BID 08/18/19 - Medication-Assisted Treatment (MAT) Medication-Assisted Treatment (MAT): No - Discharge Instructions Diet, activity, other medical instructions: Diet:CINDY Activity: oob ad lid with cane Other medical instructions:follow up wt [facility] for CD aftercare as scheduled. follow up with PCP Dr. Shah as above within 1 - 2 weeks after discharge. - Diagnosis (1) Alcohol dependence Current Visit: Yes Status: Chronic Qualifiers: Substance use status: uncomplicated Qualified Code(s): F10.20 - Alcohol dependence, uncomplicated (2) Cocaine dependence, uncomplicated Current Visit: Yes Status: Chronic (3) Gout Current Visit: Yes Status: Chronic Qualifiers: Gout site: multiple sites Chronicity: chronic Presence of tophus: with tophus (4) History of seizure Current Visit: Yes Status: Chronic (5) Hypertension Current Visit: Yes Status: Chronic Qualifiers: Hypertension type: essential hypertension Qualified Code(s): I10 - Essential (primary) hypertension (6) Osteoarthritis Current Visit: Yes Status: Chronic Qualifiers: Osteoarthritis type: unspecified Laterality: bilateral (7) Use of cane as ambulatory aid Current Visit: Yes Status: Chronic - Follow-up Referral Minutes to complete discharge: 20 - AMA Did Patient Leave Against Medical Advice: No Additional Comments: Pt states today that he picked up all his medications before coming to treatment here and has all his "brand new medications" locked up down in security property. No courtesy Rx needed or sent to pt's pharmacy today.
== END 2019-09-08 10:30 | disposition home or self-care (01) | DRG 774 ==
LOC: YASAS 12:07 → Y5N 19:06
PROVIDERS: ADMIT Neuromusculoskeletal Medicine & OMM; ATTEND Neuromusculoskeletal Medicine & OMM
PROC: HZ2ZZZZ Detoxification Services for Substance Abuse Treatment (ICD-10-PCS; principal; 2019-08-18)
DX: F10.20 Alcohol dependence, uncomplicated (principal); F14.20 Cocaine dependence, uncomplicated; I10 Essential (primary) hypertension; M10.9 Gout, unspecified; M19.90 Unspecified osteoarthritis, unspecified site; R26.2 Difficulty in walking, not elsewhere classified; R63.4 Abnormal weight loss; Z99.89 Dependence on other enabling machines and devices; Z87.891 Personal history of nicotine dependence; Z86.69 Personal history of other diseases of the nervous system and sense organs
CPT/HCPCS: 36415; 80053; 81003; 85027; 86593; 93005; 93010